=== PATIENT | female | born 1980 | race Caucasian/White ===

== ENCOUNTER 2020-06-21 08:20 | Emergency (ER) | payer OTHER, SELFPAY ==
[2020-06-21] VITALS (12 sets, daily range): BP systolic 146–157; BP diastolic 83–95; PULSE 78–96; RESP 17–29; TEMP 36.6; O2SAT 85–100
--- NOTE | ~2020-06-21 | CT_ITS ---
EXAMINATION: CT BRAIN W/O DATE: 06/21/2020 09:35 INDICATION: Status post fall. Head injury. TECHNIQUE: Computed tomography (CT) of the head was performed without intravenous contrast. The dose- length product was 605.33 mGy-cm. The mA was adjusted according to patient size. Iterative reconstruc tion technique was employed. COMPARISON: No prior studies for comparison. FINDINGS: Normal brain parenchymal volume for age. Normal cook-white differentiation. No acute intrac ranial hemorrhage, infarction, mass or mass effect. There is significant streak artifact from bilater al ear piercings. No ventriculomegaly or midline shift. Midline sagittal images demonstrate a normal corpus callosum, c raniovertebral junction and sella turcica. Basilar cisterns are patent. Paranasal sinuses and mastoids are pneumatized. No depressed skull fractures. IMPRESSION: 1. No acute intracranial abnormality. Reviewed, dictated and finalized at location B.
--- NOTE | ~2020-06-21 | CT_ITS ---
EXAMINATION: CT cervical spine wo con DATE: 06/21/2020 09:35 INDICATION: Head injury. TECHNIQUE: Computed tomography (CT) of the cervical spine was performed without intravenous contrast. Automated exposure control and iterative reconstruction technique were employed. The dose-length pro duct was 432.16 mGy-cm. COMPARISON: None FINDINGS: There is mild kyphosis of cervical spine. Vertebral body heights are normal. There is mildl y decreased disc height from C2-C3 through C5-C6. The following disc levels are specifically discusse d: C2-C3: There is no uncovertebral joint osteoarthritis. There is severe bilateral facet joint osteoart hritis. There is no neural foraminal stenosis. There is no central canal stenosis. C3-C4: There is no uncovertebral joint osteoarthritis. There is mild left facet joint osteoarthritis. There is no neural foraminal stenosis. There is mild central canal stenosis. C4-C5: There is no uncovertebral joint osteoarthritis. There is mild left facet joint osteoarthritis. There is no neural foraminal stenosis. There is no central canal stenosis. C5-C6: There is mild bilateral uncovertebral joint osteoarthritis. There is mild bilateral facet join t osteoarthritis. There is no neural foraminal stenosis. There is no central canal stenosis. C6-C7: There is no uncovertebral joint osteoarthritis. There is mild right and severe left facet join t osteoarthritis. There is mild left neural foraminal stenosis. There is no central canal stenosis. C7-T1: There is no uncovertebral joint osteoarthritis. There is moderate right and severe left facet joint osteoarthritis. There is mild left neural foraminal stenosis. There is no central canal stenosi s. IMPRESSION: 1. No fracture. 2. Mild cervical spondylosis. Reviewed, dictated and finalized at location A.
--- NOTE | 2020-06-21 08:32 | ECG_ITS ---
Measurements Intervals Lee Rate: 93 P: 58 SC: 148 QRS: -5 QRSD: 99 T: 31 QT: 350 QTc: 435 Interpretive Statements SINUS RHYTHM DELAYED PRECORDIAL R/S TRANSITION BASELINE ARTIFACT- I, II, III, AVR, AVL, AVF BORDERLINE ECG Electronically Signed On 06-21-2020 8:58:34 CDT by Dagoberto Ring D.O.
[2020-06-21 08:50] LABS: Basophils Percent Auto 0.4 % (0.2-1.2); Eosinophils Absolute Auto 0.1 K/mm3 (0-0.3); Eosinophils Percent Auto 0.7 % (0-4.4); Hematocrit 43.3 % (37.0-47.0); Hemoglobin 14.1 g/dL (12.0-15.0); Immature Granulocyte Absolute 0.02 K/mm3 (0.00-0.031); Immature Granulocyte Percent A 0.2 % (0-0.5); Lymphocytes Absolute Auto 1.76 K/mm3 (0.9-3.2); Lymphocytes Percent Auto 21.8 % (18.3-44.2); Mean Corpuscular HGB Conc 32.6 g/dl (32-36); Mean Corpuscular Hemoglobin 29.4 pg (26-34); Mean Corpuscular Volume 90.4 fl (80-100); Mean Platelet Volume 9.4 fl (7.4-10.4); Monocytes Absolute Auto 0.6 K/mm3 (0.1-0.6); Monocytes Percent Auto 7.3 % (2.6-8.5); Neutrophils Absolute Auto 5.6 K/mm3 (1.3-6.7); Neutrophils Percent Auto 69.6 % (45.5-73.1); Platelet Count Result 277 k/mm3 (150-375); Red Blood Count 4.79 M/mm3 (4.2-5.4); White Blood Count 8.1 K/mm3 (4.5-10.0)
--- NOTE | 2020-06-21 09:01 | ED.GENADULT ---
HPI - General Adult General Chief complaint: Head Injury Stated complaint: Fall-hit head Time Seen by Provider: 06/21/20 08:59 Source: patient History of Present Illness HPI narrative: Patient is a 40 y/o female complaining of falling and hitting her head CARETAKER. She states that she her dog was chewing on something she tried to go to her dog and tripped, fell and hit her head. She believes that she had LOC for an unknown period of time. She has some headache and neck pain. She denies any focal weakness or numbness. She is able to ambulate without difficulty. Related Data Allergies Allergy/AdvReac Type Severity Reaction Status Date / Time morphine Allergy Mild itch Verified 06/21/20 08:31 Review of Systems Constitutional: Constitutional: Denies chills, Denies fever(s), Reports headache(s) and Denies weakness Eyes: Eyes: Denies blurry vision ENT: Reports headache(s) and Reports neck pain Cardiovascular: Cardiovascular: Denies chest pain and Denies dyspnea Respiratory: Respiratory: Denies cough and Denies dyspnea Gastrointestinal: Gastrointestinal: Denies abdominal pain, Denies diarrhea, Denies nausea and Denies vomiting Genitourinary: Genitourinary: Denies hematuria and Denies dysuria Musculoskeletal: Musculoskeletal: Denies back pain and Denies neck pain Neurologic: Reports as per HPI, Reports headache(s), Reports memory loss and Denies weakness PMFSH Past Medical History Medical History Gallbladder & bile duct stone, acute cholecystitis and obstruction Morbid (severe) obesity due to excess calories PCOS (polycystic ovarian syndrome) Surgical History Surgical History History of partial hysterectomy Family History Family History Father , 70yrs old Lung cancer Other Family history of malignant neoplasm Social History Social History Social History: Smoking status: Never smoker Second hand tobacco smoke exposure: No Alcohol intake: current Substance use: never Substance use type: does not use Gender identity (if verbalized by the patient): Female Exam Const: General: no acute distress and well developed Orientation/consciousness: oriented to person, oriented to place, oriented to time and patient oriented x3 HENMT: Head: normocephalic Ears: external ears normal General nose exam: Normal external nose present Eyes: General: appearance normal, both eyes and all related structures Conjunctivae: conjunctivae normal Neck: Neck: normal visual inspection and full ROM Chest: Chest palpation & inspection: normal inspection of the chest and no tenderness Resp: Effort & Inspection: normal respiratory effort Auscultation: clear to auscultation bilaterally Cardio: Rate: regular rate Rhythm: regular rhythm GI: GI Palp: No abdominal tenderness and Yes Soft to palpation Skin: General skin exam: normal color and turgor normal Neuro: General: oriented to person, oriented to place, oriented to time and patient oriented x3 Cranial nerves: Yes CN's II-XII intact bilaterally Cognition (Neuro): normal cognition Speech: normal speech Motor exam (neuro): 5/5 motor strength present throughout Sensory Exam: normal sensation Coordination: [id number] test normal and [id number]-[id number] test normal Extrem: General: normal to inspection, full ROM and no pedal edema Psych: Appearance: grossly normal Mental Status: mental status grossly normal Affect: normal affect Course Vital Signs Vital signs: Vital Signs Temperature 36.6 C 06/21/20 08:24 Pulse Rate 91 06/21/20 08:24 Respiratory Rate 18 06/21/20 08:24 Blood Pressure 151/83 H 06/21/20 08:24 Pulse Oximetry 100 06/21/20 08:24 Temperature 36.6 C 06/21/20 08:24 Pulse Rate 81 06/21/20 10:59 Respiratory
[2020-06-21 09:02] LABS: Anion Gap 7 mmol/L (8-16); Blood Urea Nitrogen 10 mg/dL (7-17); Carbon Dioxide 30 mmol/L (22-30); Chloride 104 mmol/L (98-107); Estimated CRCL calculation 114 ml/min; Estimated Glomerular Filt Rate > 60; Glucose 98 mg/dL (65-105); Potassium 3.7 mmol/L (3.4-5.0); Sodium 141 mmol/L (137-145)
== END 2020-06-21 11:01 | disposition home or self-care (01) ==
PROVIDERS: Emergency Provider Emergency Medicine; PCP Family Medicine
DX: S06.0X9A Concussion with loss of consciousness of unspecified duration, initial encounter (principal); E66.01 Morbid (severe) obesity due to excess calories; Z68.38 Body mass index [BMI] 38.0-38.9, adult; E28.2 Polycystic ovarian syndrome; W01.10XA Fall on same level from slipping, tripping and stumbling with subsequent striking against unspecified object, initial encounter
CPT/HCPCS: 36415; 70450; 72125; 80048; 81025; 85025; 93005; 99284

== ENCOUNTER 2023-03-07 14:57 | Emergency (ER) | payer OTHER, SELFPAY ==
--- NOTE | 2023-03-07 15:00 | ED.URI ---
HPI - URI/Sore Throat General Chief Complaint: Dental/Oral Stated Complaint: Swollen & painful lymph node Time Seen by Provider: 03/07/23 15:01 Source: patient and RN notes reviewed History of Present Illness HPI Narrative: Patient is a 42-year-old female presents to urgent care with complaints of a swollen lymph node on the left side. Patient states that she thought she was having some dental pain and went to her dentist. Patient does currently using Invisalign and thought maybe it was related to her Invisalign. Salvador states that she should go to urgent care due to her swollen lymph node. Patient denies any other acute complaints. Denies any upper respiratory complaints, fever, nausea or vomiting. No acute distress noted. Patient aware of the plan of care. Some parts of this dictation were generated by voice recognition software and may contain typographical and/or grammatical inaccuracies. Related Data Allergies Allergy/AdvReac Type Severity Reaction Status Date / Time morphine Allergy Mild itch Verified 03/07/23 15:12 Review of Systems Review of Systems: CONSTITUTIONAL: Denies fever, chills, or sweats. EYES: Denies visual changes, redness, or discharge. ENT: Denies rhinorrhea, congestion, sore throat, or otalgia. Reports of swollen lymph node to the left ear CARDIOVASCULAR: Denies chest pain, palpitations, or edema. RESPIRATORY: Denies cough or dyspnea. GASTROINTESTINAL: Denies abdominal pain, nausea, vomiting, or diarrhea. GENITOURINARY: Denies dysuria or hematuria. SKIN: Denies rash or itching. MUSCULOSKELETAL: Denies back pain, joint pain, or myalgia. NEUROLOGIC: Denies headache, numbness, or weakness. All other systems reviewed are negative, except as documented in HPI. [facility] Past Medical History Medical History Gallbladder & bile duct stone, acute cholecystitis and obstruction Morbid (severe) obesity due to excess calories PCOS (polycystic ovarian syndrome) Surgical History Surgical History History of partial hysterectomy Family History Family History Father , 70yrs old Lung cancer Other Family history of malignant neoplasm Social History Social History (Updated 09/21/20 @ 16:36 by Margareth Cordova) Social History: Smoking status: Never smoker Second hand tobacco smoke exposure: No Alcohol intake: current Alcohol use details: Occasionally Substance use: never Substance use type: does not use Living arrangements: with family Occupation/Education: occupation Gender identity (if verbalized by the patient): Female Sexual Orientation (if Verbalized by the Patient): Straight or Heterosexual Comments ED my nurse note Exam Narrative: GENERAL: This is a well-nourished, well-developed patient, in no apparent distress. HEAD: normocephalic, atraumatic. EYES: PERRL. Sclera clear/white. Vision is grossly intact. EARS: External ears normal, auditory canals clear and without drainage, TMs normal without perforation. Hearing grossly intact. NOSE: External nose normal with no obvious nasal discharge, nares without redness, no rhinorrhea. THROAT: Mucous membranes moist, posterior pharynx clear. NECK: Neck supple, tender left post auricle lymphadenopathy DENTAL: No notable abscess, erythema, edema to gingiva or carious lesions. SKIN: warm, intact with no suspicious lesions or rash, good texture and turgor. NEURO: awake, alert, and oriented to person, place and time. There were no obvious focal neurologic abnormalities. EXTREMITIES: No clubbing, cyanosis, or edema. Course Course Level of Care: Express Care Visit Vital Signs Vital signs: Vital Signs Temperature 97.4 F L 03/07/23 15:15 Pulse Rate 84 03/07/23 15:15 Respiratory Rate 16 03/07/23 15:15 Blood Pressure 163/105 H 03/07/23 15:15 P
[2023-03-07 15:15] VITALS: BP 163/105; PULSE 84; RESP 16; TEMP 36.3; O2SAT 99
== END 2023-03-07 15:32 | disposition home or self-care (01) ==
PROVIDERS: Emergency Provider Nurse Practitioner Family; PCP Family Medicine
DX: R59.1 Generalized enlarged lymph nodes (principal); E66.01 Morbid (severe) obesity due to excess calories; Z68.41 Body mass index [BMI] 40.0-44.9, adult; E28.2 Polycystic ovarian syndrome
CPT/HCPCS: 87081; 87880; 99213; G0463

== ENCOUNTER 2023-05-10 13:34 | Outpatient (CLI) | payer OTHER, SELFPAY ==
--- NOTE | 2023-05-10 14:30 | NEURO_ITS ---
Impression: # Complains of numbness of hands. # Bilateral Carpal Tunnel Syndrome, right more than left. # No ulnar neuropathy. # Normal needle/EMG exam. Nerve Conduction Studies Anti Sensory Summary Table Stim Site NR Peak (ms) P-T Amp (?V) Site1 Site2 Delta-P (ms) Dist (cm) Akil (m/s) Left Median Anti Sensory (2-3nd Digit) Wrist 4.3 28.0 Wrist 2-3nd Digit 4.3 14.0 33 Wrist 4.5 20.1 Wrist 2-3nd Digit 4.3 14.0 33 Right Median Anti Sensory (2-3nd Digit) Wrist 4.8 20.2 Wrist 2-3nd Digit 4.8 14.0 29 Wrist 5.0 37.2 Wrist 2-3nd Digit 4.8 14.0 29 Left Radial Anti Sensory (Base 1st Digit) Wrist 2.0 50.7 Wrist Base 1st Digit 2.0 0.0 Right Radial Anti Sensory (Base 1st Digit) Wrist 2.1 15.9 Wrist Base 1st Digit 2.1 0.0 Left Ulnar Anti Sensory (5th Digit) Wrist 2.2 74.9 Wrist 5th Digit 2.2 14.0 64 Right Ulnar Anti Sensory (5th Digit) Wrist 2.2 75.5 Wrist 5th Digit 2.2 14.0 64 Motor Summary Table Stim Site NR Onset (ms) O-P Amp (mV) Site1 Site2 Delta-0 (ms) Dist (cm) Akil (m/s) Left Median Motor (Abd Poll Brev) Wrist 3.5 3.3 Elbow Wrist 5.2 28.0 54 Elbow 8.7 2.8 Right Median Motor (Abd Poll Brev) Wrist 4.0 4.7 Elbow Wrist 5.5 28.0 51 Elbow 9.5 3.4 Left Ulnar Motor (Abd Dig Minimi) Wrist 2.0 10.3 A Elbow Wrist 5.0 29.0 58 A Elbow 7.0 8.2 Right Ulnar Motor (Abd Dig Minimi) Wrist 2.0 6.3 A Elbow Wrist 5.3 30.0 57 A Elbow 7.3 6.0 F Wave Studies NR F-Lat (ms) L-R F-Lat (ms) Left Median (Mrkrs) (Abd Poll Brev) 28.44 0.41 Right Median (Mrkrs) (Abd Poll Brev) 28.85 0.41 Left Ulnar (Mrkrs) (Abd Dig Min) 27.19 0.56 Right Ulnar (Mrkrs) (Abd Dig Min) 27.74 0.56 EMG Side Muscle Nerve Root Ins Act Fibs Amp Dur Recrt Comment Right 1stDorInt Ulnar C8-T1 Nml Nml Nml Nml Nml Right Ext Indicis Radial (Post Int) C7-8 Nml Nml Nml Nml Nml Right Ext Digitorum Radial (Post Int) C7-8 Nml Nml Nml Nml Nml Right BrachioRad Radial C5-6 Nml Nml Nml Nml Nml Right PronatorTeres Median C6-7 Nml Nml Nml Nml Nml Right Abd Poll Brev Median C8-T1 Nml Nml Nml Nml Nml Left 1stDorInt Ulnar C8-T1 Nml Nml Nml Nml Nml Left Ext Indicis Radial (Post Int) C7-8 Nml Nml Nml Nml Nml Left Ext Digitorum Radial (Post Int) C7-8 Nml Nml Nml Nml Nml Left BrachioRad Radial C5-6 Nml Nml Nml Nml Nml Left PronatorTeres Median C6-7 Nml Nml Nml Nml Nml Left Abd Poll Brev Median C8-T1 Nml Nml Nml Nml Nml MTDD
== END 2023-05-10 13:35 | disposition home or self-care (01) ==
LOC: ANHNEURO 13:35
PROVIDERS: PCP Family Medicine; Visit Provider Plastic Surgery
DX: R20.0 Anesthesia of skin (principal); G56.03 Carpal tunnel syndrome, bilateral upper limbs
CPT/HCPCS: 95886; 95911

== ENCOUNTER → 2023-06-09 11:21 | Outpatient (CLI) | payer OTHER, SELFPAY ==
--- NOTE | ~2023-06-09 | MM_ITS ---
EXAMINATION: MM screening james BI w lachelle HISTORY: Screening mammogram TECHNIQUE: Craniocaudal and mediolateral oblique 3-D tomosynthesis images were obtained and synthetic 2-D images were generated. CAD analysis was submitted and interpreted. COMPARISON: No prior mammogram is available for comparison at this institution. BREAST PARENCHYMAL COMPOSITION: The breasts are almost entirely fatty. FINDINGS: There is no evidence of suspicious mass, calcification, or architectural distortion to sugg est malignancy in either breast. IMPRESSION: 1. No mammographic evidence of malignancy. 2. Recommend routine screening mammography in one year. BI-RADS Category 1: Negative Reviewed, dictated and finalized at location A.
== END ==
PROVIDERS: PCP Physician Assistant; Visit Provider Physician Assistant
DX: Z12.31 Encounter for screening mammogram for malignant neoplasm of breast (principal)
CPT/HCPCS: 77063; 77067

== ENCOUNTER 2023-08-24 02:57 | Day surgery (SDC) | payer OTHER, SELFPAY ==
[2023-08-21 10:52] VITALS: BMI 42.0
--- NOTE | 2023-08-21 10:56 | PC.NURSE ---
Report to the Outpatient Waiting Room, entrance under the green pavilion located off [facility], at time 0600 on date 08/24/23. Planned Procedure Time: 0730. Time changes happen often and if your time is changed the preop area will call you the afternoon before. - You and your visitor will be asked to self-screen and do not enter if you have any COVID symptoms. - A mask is optional within the hospital at this time. - No food OR DRINK from midnight until time of surgery Take the following medications with a SIP of water the morning of surgery: NONE DO NOT STOP ANY OF YOUR OTHER PRESCRIPTION MEDICATIONS PRIOR TO SURGERY ?EXCEPT THE FOLLOWING Medications to discontinue per physician: N/A Date to take last dose: N/A Please no make-up, nail israeli, hairspray, perfume, deodorant, or body powder the day of surgery. No jewelry (including any body piercings) or valuables the day of surgery, leave them at home. Please take a shower or bath the night before, or the morning of, surgery with an antibacterial soap. Wear comfortable, loose fitting clothing. - Jewelry must be removed prior to entering the operating room. Rings and piercings that are not removed may be cut off. - The hospital will not accept responsibility for valuables. - Please leave all valuables, including medications, at home the day of surgery. If you are going home after surgery, a licensed canal driver must drive you home. - NO public transportation without another adult if you receive anesthesia. - We recommend that an adult stay with you for 24 hours following discharge. - We also recommend that you do not drive, make important decision, drink alcoholic beverages, or take any drugs that were not prescribed by your health care provider for at least 24 hours after your discharge time. Follow any additional instructions given to you from your surgeon. If you or anyone in your household have experienced Covid symptoms in the past week, please notify your surgeon or the nurse liaison at the phone number below for possible testing. Telephone instructions given to PT - TRINITY BOWSER and asked if any additional questions and then verbalized understanding. Patient advised to call surgeon office or pre surgery nurse liaison [phone] if any additional questions.
[2023-08-24] MEDS: LACTATED RINGERS 1,000 ML 30 ML IV CONT (06:15)
[2023-08-24 06:30] VITALS: BP 150/87; PULSE 103; RESP 16; TEMP 36.5; O2SAT 100
--- NOTE | 2023-08-24 06:46 | PM.HPGS ---
History of Present Illness History of Present Illness Chief complaint: bilat carpal tunnel syndrome upper extremities Narrative: Patient seen and examined in pre-operative holding area. No interval change in medical history or symptoms. Patient recalls previous discussion of benefits and alternatives to procedure. Continues to desire to proceed with right ectr poss open and left carpal tunnel steroid injection. Reviewed procedure, post-op expectations and risks including but not limited to bleeding, infection, injury to tendon/nerve/vessel, decreased hand function, stiffness, RSD, no change or worsening of symptoms. I discussed the possible use of assistants and their participation in the case. Patient stated understanding and signed the consent form wishing to proceed. Review of Systems Review of Systems: All systems reviewed & are unremarkable except as noted in HPI and below PMFSH Past Medical History Medical History Gallbladder & bile duct stone, acute cholecystitis and obstruction Morbid (severe) obesity due to excess calories PCOS (polycystic ovarian syndrome) Surgical History Surgical History History of partial hysterectomy Family History Family History Father , 70yrs old Lung cancer Other Family history of malignant neoplasm Social History Social History Social History: Smoking status: Never smoker Second hand tobacco smoke exposure: No Alcohol intake: never Alcohol use details: Occasionally Substance use: never Substance use type: does not use Lack of Transportation: No Lack of Food: Never True Current Housing: I Have Housing Concerned About Future Housing: No Difficulty Paying Gas/Electric Bills: No Difficulty Paying for Meds: No Currently Unemployed: No Education: Associate Degree Difficulty w/ Childcare or Family Care: No Living arrangements: with family Occupation/Education: occupation Gender identity (if verbalized by the patient): Female Sexual Orientation (if Verbalized by the Patient): Straight or Heterosexual Spiritual care concerns: No Meds Home Medications and Allergies Home Medications Medication Instructions Recorded Confirmed Type amlodipine 10 mg tablet (Norvasc) 10 mg PO DAILY #90 tabs 04/17/23 08/21/23 Rx Allergies Allergy/AdvReac Type Severity Reaction Status Date / Time morphine Allergy Mild itch Verified 08/21/23 10:52 Exam Narrative: unchanged Assessment and Plan Assessment and plan (1) Bilateral carpal tunnel syndrome: Code(s): G56.03 - Carpal tunnel syndrome, bilateral upper limbs Status: Acute
--- NOTE | 2023-08-24 06:50 | W.PM.PROC2 ---
Procedure Note - Detailed Date of Procedure 08/24/23 Pre-op Diagnosis bilat carpal tunnel syndrome upper extremities Post-op Diagnosis Same Procedure Performed right ectr and left carpal tunnel steroid injection Surgeon Nile Dillon MD Anesthesia MAC Description of Procedure ENDOSCOPIC CARPAL TUNNEL RELEASE INFORMED CONSENT: The patient was seen and examined and marked in the pre-op area.? The patient signed the consent form. PROCEDURE IN DETAIL:The patient taken back to OR on the stretcher in supine position. Time out performed with anesthesia, surgeon and staff agreeing on patient's name site and surgery to be performed SCDs were placed on the lower extremities and inflated. A tourniquet was placed on {right/} upper extremity and antibiotics given IV After anesthesia administered sedation I injected {5}cc 1%lido with epi and 0.5% marcaine plain at the operative site The?{right upper extremity}?was prepped and draped in sterile fashion the??{right upper extremity} was? exsanguinated with Esmarch bandage and tourniquet inflated to 250mmHg I made a transverse incision in the {right} volar distal wrist crease through skin and dermis with 15 blade scalpel.? Littler scissors spread down to antebrachial fascia. A small incision was made in antebrachial fascia allowing access to Carpal tunnel. I proceeded with sequential dilation staying in line with the ring finger and hugging the hook of the hamate.? I then used the synovial elevator to free any adhesions from the underside of the transverse carpal ligament. Next I was able to insert the Microaire endoscopic carpal tunnel device with direct visualization of the transverse fibers on the monitor and proceeded with complete segmental retrograde release of the ligament in its entirety.? I irrigated with normal saline and closed with 4-0 monocryl for dermis and subcuticular closure. A dressing of Dermabond, 4x4, zuri, and a volar splint was applied for patient safety, security, and comfort and secured with an jewels bandage after the tourniquet was let down noting the hand was warm and well perfused. Next I proceeded iwth injection 0.7cc betamethasone and 0.3cc 1%lido plain into left carpal tunnel under sterile condition. The patient was then awaken from anesthesia and transferred to the recovery room in stable condition.? Complications - none EBL- 0cc Disposition - home in stable conditions AM Billing Surgery - Charge Forward: Surgery Billing ([id number], [id number])
--- NOTE | 2023-08-24 06:56 | WPDANESEPPF ---
Anes - Initial Pre Proc Eval Procedure: Operation Date: 08/24/23 07:30 Proposed Procedures p Right Endoscopic Carpal Tunnel Release, Possible Open, Left Carpal Tunnel Steroid Injection - Nile Dillon MD Date/Time: 08/24/23 06:56 Surgeon: Nile Dillon MD Pre Op Diagnosis: bilat carpal tunnel syndrome upper extremities Patient Data Age: 43 Gender: F Height: 1.63 m Weight: 111.15 kg Allergies Allergy/AdvReac Type Severity Reaction Status Date / Time morphine Allergy Mild itch Verified 08/21/23 10:52 Home Medications Medication Instructions Recorded Confirmed Type amlodipine 10 mg tablet (Norvasc) 10 mg PO DAILY #90 tabs 04/17/23 08/21/23 Rx Patient hx anesthesia problems: none Family hx anesthesia problems: none Results Review: All pre-operative results and documents have been reviewed as part of the pre-operative evaluation. [facility] Past Medical History Medical History Gallbladder & bile duct stone, acute cholecystitis and obstruction Morbid (severe) obesity due to excess calories PCOS (polycystic ovarian syndrome) Surgical History Surgical History History of partial hysterectomy Family History Family History Father , 70yrs old Lung cancer Other Family history of malignant neoplasm Social History Social History Social History: Smoking status: Never smoker Second hand tobacco smoke exposure: No Alcohol intake: never Alcohol use details: Occasionally Substance use: never Substance use type: does not use Lack of Transportation: No Lack of Food: Never True Current Housing: I Have Housing Concerned About Future Housing: No Difficulty Paying Gas/Electric Bills: No Difficulty Paying for Meds: No Currently Unemployed: No Education: Associate Degree Difficulty w/ Childcare or Family Care: No Living arrangements: with family Occupation/Education: occupation Gender identity (if verbalized by the patient): Female Sexual Orientation (if Verbalized by the Patient): Straight or Heterosexual Spiritual care concerns: No Anes - Eval Final PreProcedure Day of Procedure 08/24/23 06:56 Patient weight: morbidly obese Heart: regular rate and rhythm Lungs: clear to auscultation Airway: Mallampati scale class II Neurological: alert and oriented Last oral intake: >/= 8 hours ASA classification: III Emergent: no Anesthetic plan: proceed Anesthesia type and monitoring: general GIVS and standard monitoring Results Review: All pre-operative results and documents have been reviewed as part of the pre-operative evaluation. Informed Consent: The patient's anesthetic plan and its attendant risks and benefits were discussed with the patient/family/POA. Questions were solicited and answers provided to the satisfaction of the patient/family/POA.
[2023-08-24] MEDS: BETAMETHASONE SOD PHOS/ACETATE 30 MG/5 ML VIAL 12 MG IM (07:20)
[2023-08-24] MEDS: ceFAZolin 2 GM/D5W 50 ML 2 GM/50 ML BAG IVPB (07:30)
[2023-08-24] MEDS: LIDO 1%/EPINEPHRINE 1:100,000 50 ML VIAL INFILTRATE (07:51)
[2023-08-24 07:53] VITALS: BP 111/72; PULSE 91; RESP 16; O2SAT 97
[2023-08-24] MEDS: LIDOCAINE HCL 1% LOCAL INJ 10 ML VIAL INFILTRATE (07:56)
[2023-08-24 08:20] VITALS: BP 110/76; PULSE 85; RESP 18
[2023-08-24 08:45] VITALS: BP 112/83; PULSE 64; RESP 18
== END 2023-08-24 08:51 | disposition home or self-care (01) ==
PROVIDERS: PCP Physician Assistant; Visit Provider Plastic Surgery
PROC: 01N54ZZ Release Median Nerve, Percutaneous Endoscopic Approach (ICD-10-PCS; CPT 29848; principal; 2023-08-24 07:30)
DX: G56.03 Carpal tunnel syndrome, bilateral upper limbs (principal); E66.01 Morbid (severe) obesity due to excess calories; Z68.41 Body mass index [BMI] 40.0-44.9, adult
CPT/HCPCS: 29848; 20526; J0690; J0702; J2250; J2704; J3010; J7120

== ENCOUNTER 2023-11-22 01:21 | Day surgery (SDC) | payer OTHER, SELFPAY ==
[2023-11-14 10:24] VITALS: BMI 40.7
--- NOTE | 2023-11-14 10:28 | PC.NURSE ---
Report to the Outpatient Waiting Room, entrance under the green pavilion located off [facility], at time _1000__ on date _11/22/23 . Planned Procedure Time: _1200___. Time changes happen often and if your time is changed the preop area will call you the afternoon before. - You and your visitor will be asked to self-screen and do not enter if you have any COVID symptoms. - A mask is optional within the hospital at this time. Patients may have clear liquids (water, carbonated beverages, clear teas, apple juice) until 8 hours prior to surgery with a maximum of 20 ounces. - No food from midnight until time of surgery Take the following medications with a SIP of water the morning of surgery: N/A DO NOT STOP ANY OF YOUR OTHER PRESCRIPTION MEDICATIONS PRIOR TO SURGERY ?EXCEPT THE FOLLOWING Please no make-up, nail bengali, hairspray, perfume, deodorant, or body powder the day of surgery. No jewelry (including any body piercings) or valuables the day of surgery, leave them at home. Please take a shower or bath the night before, or the morning of, surgery with an antibacterial soap. Wear comfortable, loose fitting clothing. Children are encouraged to wear pajamas. - Jewelry must be removed prior to entering the operating room. Rings and piercings that are not removed may be cut off. - The hospital will not accept responsibility for valuables. - Please leave all valuables, including medications, at home the day of surgery. If you are going home after surgery, a licensed yard truck driver must drive you home. - NO public transportation without another adult if you receive anesthesia. - We recommend that an adult stay with you for 24 hours following discharge. - We also recommend that you do not drive, make important decision, drink alcoholic beverages, or take any drugs that were not prescribed by your health care provider for at least 24 hours after your discharge time. Follow any additional instructions given to you from your surgeon. If you or anyone in your household have experienced Covid symptoms in the past week, please notify your surgeon or the nurse liaison at the phone number below for possible testing. Telephone instructions given to _Sasha Quiros__and asked if any additional questions and then verbalized understanding. Patient advised to call surgeon office or pre surgery nurse liaison [phone] if any additional questions.
[2023-11-22 10:14] VITALS: BP 141/95; PULSE 93; RESP 16; TEMP 36.3; O2SAT 100
--- NOTE | 2023-11-22 10:15 | P.OP_ITS ---
Procedure Note - Detailed Date of Procedure 11/22/23 Pre-op Diagnosis left carpal tunnel syndrome Post-op Diagnosis Same Procedure Performed left ectr Surgeon Nile Dillon MD [employer] Nabor Soler PA-C Anesthesia MAC Description of Procedure INFORMED CONSENT: The patient was seen and examined and marked in the pre-op area.? The patient signed the consent form. PROCEDURE IN DETAIL:The patient taken back to OR on the stretcher in supine position. Time out performed with anesthesia, surgeon and staff agreeing on patient's name site and surgery to be performed SCDs were placed on the lower extremities and inflated. A tourniquet was placed on {left} upper extremity and antibiotics given IV After anesthesia administered sedation I injected {6}cc 1%lido with epi and 0.5% marcaine plain at the operative site The?{left upper extremity}?was prepped and draped in sterile fashion the??{left upper extremity} was? exsanguinated with Esmarch bandage and tourniquet inflated to 250mmHg I made a transverse incision in the {left} volar distal wrist crease through skin and dermis with 15 blade scalpel.? Littler scissors spread down to antebrachial fascia. A small incision was made in antebrachial fascia allowing access to Carpal tunnel. I proceeded with sequential dilation staying in line with the ring finger and hugging the hook of the hamate.? I then used the synovial elevator to free any adhesions from the underside of the transverse carpal ligament. Next I was able to insert the Microaire endoscopic carpal tunnel device with direct visualization of the transverse fibers on the monitor and proceeded with complete segmental retrograde release of the ligament in its entirety.? I irrigated with normal saline and closed with 4-0 monocryl for dermis and subcuticular closure. A dressing of Dermabond, 4x4, zuri, and a volar splint was applied for patient safety, security, and comfort and secured with an jewels bandage after the tourniquet was let down noting the hand was warm and well perfused. The patient was then awaken from anesthesia and transferred to the recovery room in stable condition.? Complications - none EBL- 0cc Disposition - home in stable conditions Nabor Soler PA-C was essential for positioning, retraction, closure and dressing placement [facility] Billing Surgery - Charge Forward: Surgery Billing ([id number] and [id number] for nabor)
--- NOTE | 2023-11-22 10:15 | WPDHPUPDATE1 ---
History and Physical Update Update Date/Time: 11/22/23 10:15 Patient seen and examined in pre-operative holding area. No interval change in medical history or symptoms. Patient recalls previous discussion of benefits and alternatives to procedure. Continues to desire to proceed with left endoscopic possible open carpal tunnel release. Reviewed procedure, post-op expectations and risks including but not limited to bleeding, infection, injury to tendon/nerve/vessel, decreased hand function, stiffness, RSD, no change or worsening of symptoms. I discussed the possible use of assistants and their participation in the case. Patient stated understanding and signed the consent form wishing to proceed.
--- NOTE | 2023-11-22 11:18 | WPDANESEPPF ---
Anes - Initial Pre Proc Eval Procedure: Operation Date: 11/22/23 12:00 Proposed Procedures p Left Endoscopic, Possible Open Carpal Tunnel Release - Nile Dillon MD Date/Time: 11/22/23 11:18 Surgeon: Nile Dillon MD Pre Op Diagnosis: Lt Carpal Tunnel Synd Patient Data Age: 43 Gender: F Height: 1.65 m Weight: 116.8 kg Last Vital Signs Temp 36.3 C L 11/22/23 10:14 Pulse 93 11/22/23 10:14 Resp 16 11/22/23 10:14 BP 141/95 H 11/22/23 10:14 Pulse Ox 100 11/22/23 10:14 O2 Del Method Room Air 11/22/23 10:14 Allergies Allergy/AdvReac Type Severity Reaction Status Date / Time morphine Allergy Mild itch Verified 11/22/23 10:07 Home Medications Medication Instructions Recorded Confirmed Type amlodipine 10 mg tablet (Norvasc) 10 mg PO HS 11/14/23 11/14/23 History tramadol 50 mg tablet 50 mg PO Q6H PRN pain #12 tabs 11/22/23 Rx Patient hx anesthesia problems: none Family hx anesthesia problems: none Results Review: All pre-operative results and documents have been reviewed as part of the pre-operative evaluation. [facility] Past Medical History Medical History Gallbladder & bile duct stone, acute cholecystitis and obstruction Morbid (severe) obesity due to excess calories PCOS (polycystic ovarian syndrome) Surgical History Surgical History History of partial hysterectomy Family History Family History Father , 70yrs old Lung cancer Other Family history of malignant neoplasm Social History Social History Social History: Smoking status: Never smoker Second hand tobacco smoke exposure: No Alcohol intake: never Substance use: never Substance use type: does not use Lack of Transportation: No Lack of Food: Never True Current Housing: I Have Housing Concerned About Future Housing: No Difficulty Paying Gas/Electric Bills: No Difficulty Paying for Meds: No Currently Unemployed: No Education: Associate Degree Difficulty w/ Childcare or Family Care: No Living arrangements: with family Occupation/Education: occupation Gender identity (if verbalized by the patient): Female Sexual Orientation (if Verbalized by the Patient): Straight or Heterosexual Spiritual care concerns: No Anes - Eval Final PreProcedure Day of Procedure 11/22/23 11:18 Patient weight: morbidly obese Heart: regular rate and rhythm Lungs: clear to auscultation Airway: Mallampati scale class II Neurological: alert and oriented Last oral intake: >/= 8 hours ASA classification: III Emergent: no Anesthetic plan: proceed Anesthesia type and monitoring: general GIVS and standard monitoring Results Review: All pre-operative results and documents have been reviewed as part of the pre-operative evaluation. Informed Consent: The patient's anesthetic plan and its attendant risks and benefits were discussed with the patient/family/POA. Questions were solicited and answers provided to the satisfaction of the patient/family/POA.
[2023-11-22] MEDS: ceFAZolin 2 GM/D5W 50 ML 2 GM/50 ML BAG IVPB (12:07)
[2023-11-22] MEDS: LIDO 1%/EPINEPHRINE 1:100,000 50 ML VIAL INFILTRATE (12:24)
[2023-11-22 12:34] VITALS: BP 116/77; PULSE 89; RESP 12; O2SAT 95
[2023-11-22] MEDS: LACTATED RINGERS 1,000 ML 30 ML IV CONT (12:34)
[2023-11-22 13:00] VITALS: BP 111/74; PULSE 83; RESP 20
[2023-11-22 13:25] VITALS: BP 118/70; PULSE 90; RESP 20
== END 2023-11-22 13:30 | disposition home or self-care (01) ==
PROVIDERS: PCP Physician Assistant; Visit Provider Plastic Surgery
PROC: 01N54ZZ Release Median Nerve, Percutaneous Endoscopic Approach (ICD-10-PCS; CPT 29848; principal; 2023-11-22 12:00)
DX: G56.02 Carpal tunnel syndrome, left upper limb (principal); E28.2 Polycystic ovarian syndrome; E66.01 Morbid (severe) obesity due to excess calories; Z68.41 Body mass index [BMI] 40.0-44.9, adult; Z79.891 Long term (current) use of opiate analgesic; Z80.1 Family history of malignant neoplasm of trachea, bronchus and lung
CPT/HCPCS: 29848; J0690; J2250; J2704; J3010; J7120

== ENCOUNTER 2025-02-10 19:34 | Emergency (ER) | payer OTHER, SELFPAY ==
--- NOTE | ~2025-02-10 | CT_ITS ---
CT abdomen pelvis w con Ordering provider: Chandni Ernst APRN History: 44 years Female with . generalized abdominal pain . Comparison: None. Technique: CT abdomen and pelvis with IV and without oral contrast. Automated exposure control and it erative reconstruction technique were employed. The dose-length product was 1618.43 mGy-cm. 100 mL Om nipaque 350 was given IV. Findings: VISUALIZED LOWER CHEST: Normal. UPPER ABDOMINAL ORGANS: Liver: Fat infiltration. Hepatomegaly. Gallbladder: Status post cholecystectomy. Spleen: Normal. Stomach/duodenum: Small sliding hiatus hernia. Pancreas: Normal. Adrenals: Normal. Kidneys: Normal. PELVIC ORGANS: The bladder is normal. Right ovarian cyst is seen measuring 6 x 4.6 cm. Left ovarian cyst is seen measuring 1.8 x 2.8 cm. BOWEL AND MESENTERY: Colon: no evidence of diverticulitis. Appendix is not demonstrated.. Small Bowel: Normal. No obstruction. Peritoneum/mesentery: No free air or free fluid. No mesenteric lymphadenopathy. RETROPERITONEUM: Normal aorta. No retroperitoneal lymphadenopathy. MUSCULOSKELETAL: Superficial soft tissues: Small left fat-containing inguinal hernia. Otherwise, The superficial soft tissues are normal. Bones: Age appropriate degenerative changes of the spine. Bilateral sacroiliacs. IMPRESSION: 1. No evidence of appendicitis, diverticulitis or intestinal obstruction. 2. Bilateral ovarian cysts larger on the right side. 3. Left fat-containing inguinal hernia. 4. Hepatomegaly with fat infiltration. Reviewed, dictated and finalized at location A.
--- OUTSIDE RECORDS SUMMARY | 2025-02-10 19:37 | XMS_ITS | Clinical Summary ---
Author Organization [facility] Address [address] [place] [address] Care Team Providers Care Shoelace Tipping Machine Operator Name Role Phone No, Physician Primary Care Provider [phone] Allergies Active Allergy Reactions Criticality Noted Date Comments Morphine Itching Low 05/15/2017 Medications azithromycin (ZITHROMAX) 250 mg tabletIndicatio ns:Chest congestion Take 2 tablets the first day, then 1 tablet daily for 4 days. 6 tablet 1 Active albuterol HFA (PROVENTIL HFA,VENTOLIN HFA,PROAIR HFA) 90 mcg/actuation inhalerIndicati ons:Chest congestion Inhale 2 puffs every 6 (six) hours as needed for wheezing or shortness of breath 1 each 1 Active Active Problems Problem Noted Date Diagnosed Date Family history of genetic disease carrier 2020 Family history of ovarian cancer 06/07/2021 Family history of pancreatic cancer 06/07/2021 Family history of colon cancer 06/07/2021 08/21/2013 Irregular menstrual cycle 09/25/2012 Family History Medical History Relation Name Comments No Known Problems Daughter 1 Pamela No Known Problems Daughter 2 Wendy Lung cancer Father history of smok ing Colon cancer Father's Brother Celso Pancreatic cancer Father's Sister 1 Zuleyka Ovarian cancer Father's Sister 2 Rosy Alzheimer's disease Maternal Grandfather Stroke Maternal Grandmother CHEK2+ Mother Hien Ovarian cancer Mother Hien No Known Problems Nephew 1 Bello No Known Problems Nephew 2 accidental Paternal Grandfather Stomach cancer Paternal Grandmother chewe d snuff Lung disease Paternal Half-Brother Tank Polycystic ovary syndrome Sister Jeanette Relation Name Status Comments Daughter 1 Pamela Alive Daughter 2 Wendy Alive Father (Age 70) Father's Brother Celso Alive Father's Sister 1 Zuleyka (Age 75) Father's Sister 2 Rosy (Age 35) Maternal Grandfather (Age 84) Maternal Grandmother (Age 78) Mother Hien Alive Nephew 1 Bello Alive Nephew 2 Alive Paternal Grandfather (Age 45) Paternal Grandmother (Age 81) Paternal Half-Brother Tank (Age 47) Sister Jeanette Alive Social History Tobacco Use Types Packs/Day Years Used Date Smoking Tobacco: Never Personal Safety Answer Date Recorded Getting School Help Needed Not on file 10/29 Comments No Sex and Gender Information Value Date Recorded Sex Assigned at Not on file 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 Gender Identity Not on file Sexual Orientation Not on file Obstetrics History Last Filed Vital Signs Vital Sign Reading Time Taken Comments Blood Pressure 148/96 06/20/2021 8:31 AM CDT Pulse 106 06/20/2021 8:31 AM CDT Temperature 36.7 C (98.1 F) 06/20/2021 8:31 AM CDT Respiratory Rate 18 06/20/2021 8:31 AM CDT Oxygen Saturation 98% 06/20/2021 8:31 AM CDT Inhaled Oxygen Concentration - - Weight 116.1 kg (256 lb) 06/20/2021 8:31 AM CDT Height 165.1 cm (5' 5) 06/20/2021 8:31 AM CDT Body Mass Index 42.6 06/20/2021 8:31 AM CDT Plan of Treatment Not on file Insurance AETNA HMO/PPO CHOICE PLUS AETNA [facility] CHOICE PLUS KAREL GIANNA Care Teams Shoelace Tipping Machine Operator Relationship Specialty Start Date End Date No, Physician PCP - General 04/19/21
--- OUTSIDE RECORDS SUMMARY | 2025-02-10 19:37 | XMS_ITS | Clinical Summary ---
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
--- OUTSIDE RECORDS SUMMARY | 2025-02-10 19:37 | XMS_ITS | Clinical Summary ---
Author Organization [facility] Address [address] [place] [address] Care Team Providers Care Deputy Sheriff Lieutenant Name Role Phone Unavailable Primary Care Provider Unavailabl e Source Comments [facility],non-owned Affiliates and Associated Physician Practices is amultiple site organization consisting of ambulatory clinics and hospital sitesin [place], [place], [place] and [place]. This disclosure is being madepursuant to the Care Everywhere program and may not contain all information available regarding this patient. Last updated 18.[facility] Allergies Active Allergy Reactions Criticality Noted Date Comments Morphine Itching 05/15/2017 Medications * Be aware that medications may not be up to date on this document. Alwaysverify current medications with the patient. 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 Gender Identity Not on file Sexual Orientation Not on file Last Filed Vital Signs Vital Sign Reading Time Taken Comments Blood Pressure 142/88 09/16/2019 4:44 PM LUTE PACKER OR APPLIER Pulse 90 09/16/2019 4:44 PM LUTE PACKER OR APPLIER Temperature 36.9 C (98.5 F) 09/16/2019 4:44 PM LUTE PACKER OR APPLIER Respiratory Rate 16 09/16/2019 4:44 PM LUTE PACKER OR APPLIER Oxygen Saturation 98% 09/16/2019 4:44 PM LUTE PACKER OR APPLIER Inhaled Oxygen Concentration - - Weight 108.4 kg (239 lb) 09/16/2019 4:44 PM LUTE PACKER OR APPLIER Height 165.1 cm (5' 5) 09/16/2019 4:44 PM LUTE PACKER OR APPLIER Body Mass Index 39.77 09/16/2019 4:44 PM LUTE PACKER OR APPLIER Plan of Treatment Health Maintenance Due Date Last Done Comments LIPID TESTING 1982 MAMMOGRAM 1982 HIV SCREENING 1997 HEPATITIS C SCREENING 06/01/2000 DTAP/TDAP/TD VACCINES (1 - Tdap) 2001 HEPATITIS B VACCINE (1 of 3 - 19+ 3-dose series) 2001 COVID-19 VACCINE (1 - 2023-2 5 season) 2024 DEPRESSION SCREENING 09/03/2024 INFLUENZA VACCINE (Season Ended) 2025 ZOSTER VACCINE (1 of 2) 2032 HIB VACCINE Aged Out No longer eligi ble based on patient's age to complete this topic HPV VACCINE Aged Out No longer eligi ble based on patient's age to complete this topic MENINGOCOCCAL (Group B) VACC INE SHARED DECISION-MAKING Aged Out No longer eligibl e based on patient's age to complete this topic MENINGOCOCCAL GROUPS A/C/Y/W VACCINE Aged Out No longer eligible b ased on patient's age to complete this topic PNEUMOCOCCAL VACCINE Aged Out No long er eligible based on patient's age to complete this topic Insurance [facility] AETNA [facility] Address: [address] [address] [place] [address]
--- OUTSIDE RECORDS SUMMARY | 2025-02-10 19:37 | XMS_ITS | Referral Summary ---
Author Organization [facility] Address [address] [place] [address] Care Team Providers Care Union Representative Name Role Phone No, Physician Primary Care Provider [phone] Allergies Active Allergy Reactions Criticality Noted Date Comments Morphine Itching Low 05/15/2017 Medications azithromycin (ZITHROMAX) 250 mg tabletIndicatio ns:Chest congestion Take 2 tablets the first day, then 1 tablet daily for 4 days. 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 CHOICE PLUS AETNA [facility] CHOICE PLUS [facility] Care Teams Union Representative Relationship Specialty Start Date End Date No, Physician PCP - General 04/19/21
[2025-02-10 19:40] VITALS: BP 162/94; PULSE 109; RESP 16; TEMP 36.6; O2SAT 100
[2025-02-10 19:56] VITALS: BP 133/118; PULSE 92; RESP 17; O2SAT 98
--- NOTE | 2025-02-10 20:16 | ED_ITS ---
HPI - Abdominal Pain General Chief Complaint: Abdominal Pain Stated Complaint: Right flank, abdominal pain, nausea Time Seen by Provider: 02/10/25 19:38 History of Present Illness HPI narrative: Patient is a 44-year-old female who presents to the ER with complaints abdominal pain. She reports her pain started yesterday. It radiates across her upper and lower abdomen and into her right flank. Patient reports the pain increases when she urinates or has a bowel movement. She also endorses a feeling of fullness.Patient denies any urinary symptoms, chest pain, shortness of breath, recent fevers, or vomiting. She endorses a history of a partial hysterectomy and a cholecystectomy. Patient also endorses intermittent nausea and decreased p.o. intake. Related Data Allergies Allergy/AdvReac Type Severity Reaction Status Date / Time morphine Allergy Mild itch Verified 02/10/25 19:45 Review of Systems 2 Review of Systems: All systems reviewed & are unremarkable except as noted in HPI and below PMFSH Past Medical History Medical History Morbid (severe) obesity due to excess calories PCOS (polycystic ovarian syndrome) Gallbladder & bile duct stone, acute cholecystitis and obstruction Surgical History Surgical History History of partial hysterectomy Family History Family History Father , 70yrs old Lung cancer Other Family history of malignant neoplasm Social History Social History Social History: Smoking status: Never smoker Second hand tobacco smoke exposure: No Alcohol intake: never Substance use: never Substance use type: does not use Lack of Transportation: No Lack of Food: Never True Current Housing: I Have Housing Concerned About Future Housing: No Difficulty Paying Gas/Electric Bills: No Difficulty Paying for Meds: No Currently Unemployed: No Education: Associate Degree Difficulty w/ Childcare or Family Care: No Living arrangements: with family Occupation/Education: occupation Gender identity (if verbalized by the patient): Female Sexual Orientation (if Verbalized by the Patient): Straight or Heterosexual Spiritual care concerns: No Exam 2 Narrative: GENERAL: Well appearing, well-nourished, non-toxic, in no acute distress. HEAD: Normocephalic, atraumatic. NECK: Supple. No adenopathy, no masses. RESPIRATORY: Airway patent, respirations nonlabored. Clear to auscultation bilaterally, no rales, rhonchi, wheezing. CARDIOVASCULAR: Regular rate and rhythm without murmurs, rubs, or gallops. Peripheral pulses 2+ and equal bilaterally. ABDOMINAL: Soft, tender with palpation right upper quadrant, left upper quadrant, right lower quadrant. Slightly distended, no hepatosplenomegaly. Normoactive BS. MUSCULOSKELETAL: Moves all extremities. Strength/ROM intact without gross deformities. SKIN: Warm, dry, normal color. No rashes. NEURO: A&O X3. Speech clear. Cranial nerves II-XII intact. No ataxic movements. PSYCHIATRIC: Appropriate mood and affect. Normal interaction. Course Vital Signs Vital signs: Vital Signs Temperature 36.6 C 02/10/25 19:40 Pulse Rate 109 H 02/10/25 19:40 Respiratory Rate 16 02/10/25 19:40 Blood Pressure 162/94 H 02/10/25 19:40 Pulse Oximetry 100 02/10/25 19:40 Oxygen Delivery Room Air 02/10/25 19:40 Temperature 36.6 C 02/10/25 19:40 Pulse Rate 92 02/10/25 19:56 Respiratory Rate 17 02/10/25 19:56 Blood Pressure 133/118 H 02/10/25 19:56 Pulse Oximetry 98 02/10/25 19:56 Oxygen Delivery Room Air 02/10/25 19:40 MDM - Abdominal Pain MDM Narrative Medical decision making narrative: Patient is a 44-year-old female who presents to the ER with complaints abdominal pain. She reports her pain started yesterday. It radiates across her upper and lower abdomen and into her right flank. Patient reports the pain increases when she urinates or has a bowel movement. She also endorses a feeling of fullness.Patient denies any urinary symptoms, chest pain, shortness of breath, recent fevers, or vomiting. She endorses a history of a partial hysterectomy and a cholecystectomy. Patient also endorses intermittent nausea and decreased p.o. intake. Labs Ordered: CBC, CMP, lipase, UA Imaging Ordered: CT abdomen pelvis Medications Ordered: 1 L normal saline IV bolus Results: Pt's CT scan indicates VISUALIZED LOWER CHEST: Normal. UPPER ABDOMINAL ORGANS: Liver: Fat infiltration. Hepatomegaly. Gallbladder: Status post cholecystectomy. Spleen: Normal. Stomach/duodenum: Small sliding hiatus hernia. Pancreas: Normal. Adrenals: Normal. Kidneys: Normal. PELVIC ORGANS: The bladder is normal. Right ovarian cyst is seen measuring 6 x 4.6 cm. Left ovarian cyst is seen measuring 1.8 x 2.8 cm. BOWEL AND MESENTERY: Colon: no evidence of diverticulitis. Appendix is not demonstrated.. Small Bowel: Normal. No obstruction. Peritoneum/mesentery: No free air or free fluid. No mesenteric lymphadenopathy. RETROPERITONEUM: Normal aorta. No retroperitoneal lymphadenopathy. MUSCULOSKELETAL: Superficial soft tissues: Small left fat-containing inguinal hernia. Otherwise, The superficial soft tissues are normal. Bones: Age appropriate degenerative changes of the spine. Bilateral sacroiliacs. Diagnosis: Gastroenteritis Patient Education/Shared MDM: Results of lab work and imaging shared with patient. She endorses ongoing lower abdominal and R flank pain, so she will be given a dose of Toradol prior to discharge. Patient strongly advised to maintain hydration status upon discharge and follow-up with their PCP as soon as possible. She will be discharged home with a prescription for Bentyl and a muscle relaxant (per pt's request in case this pain is muscular). Strict return precautions provided. Patient verbalized understanding and is in agreement with plan. Vital signs stable at time of discharge. All questions answered. Differential Diagnosis Differential diagnosis: Likely abdominal pain, calculus of kidney, constipation, diverticulitis and gastroenteritis Lab Data Attestation: I reviewed the patient's lab results. 02/10/25 19:51 02/10/25 20:25 Labs: Lab Results 02/10/25 02/10/25 02/10/25 Range/Units 19:51 20:05 20:16 WBC 10.1 H (4.5-10.0) K/mm3 RBC 4.76 (4.2-5.4) M/mm3 Hgb 14.6 (12.0-15.0) g/dL Hct 44.4 (37.0-47.0) % MCV 93.3 (80-100) fl MCH 30.7 (26-34) pg MCHC 32.9 (32-36) g/dl RDW 12.8 (11.5-14.5) % Plt Count 271 (150-375) k/mm3 MPV 10.4 (7.4-10.4) fl Immature Gran % (Auto) 0.3 (0-0.5) % Neut % (Auto) 66.8 (45.5-73.1) % Lymph % (Auto) 23.5 (18.3-44.2) % Schleicher % (Auto) 7.7 (2.6-8.5) % Eos % (Auto) 1.0 (0-4.4) % Baso % (Auto) 0.7 (0.2-1.2) % Lymph # (Auto) 2.37 (0.9-3.2) K/mm3 Schleicher # (Auto) 0.8 H (0.1-0.6) K/mm3 Eos # (Auto) 0.1 (0-0.3) K/mm3 Baso # (Auto) 0.1 (0.0-0.1) K/mm3 Abs Immat Gran (auto) 0.03 (0.00-0.031) K/mm3 Absolute Neuts (auto) 6.7 (1.3-6.7) K/mm3 Absolute Nucleated RBC 0.000 (0.0-0.012) K/mm3 Nucleated RBC % 0.0 (0.0-0.2) % Sodium (137-145) mmol/L Potassium (3.4-5.0) mmol/L Chloride (98-107) mmol/L Carbon Dioxide (22-30) mmol/L Anion Gap (4-12) mmol/L BUN (7-17) mg/dL Creatinine (0.7-1.0) mg/dL Estim Creat Clear Calc ml/min Estimated GFR (59 - ) Glucose (65-110) mg/dL Calcium (8.4-10.2) mg/dL Total Bilirubin (0.2-1.3) mg/dL AST (14-36) U/L ALT (6-35) U/L Alkaline Phosphatase (38-126) U/L Total Protein (6.3-8.2) g/dL Albumin (3.5-5.1) g/dL Lipase (23-300) U/L Urine Color Yellow (Yellow) Urine Appearance Clear (Clear) Urine pH 6.0 (5.0-9.0) Ur Specific [place] 1.013 (1.001-1.035) Urine Protein Negative (Negative) mg/dL Urine Glucose (UA) Negative (Negative) mg/dL Urine Ketones Negative (Negative) mg/dL Ur Blood (Man) Non-hemolyzed trace H (Negative) Urine Nitrate Negative (Negative) Urine Bilirubin Negative (Negative) Urine Urobilinogen 0.2 (<2.0) mg/dL Leukocyte Esterase Rfl Negative (Negative) OMAR/UL Urine RBC 3-5 H (0-2) /hpf Urine WBC 0-5 (0-3) /hpf Ur Squamous Epith Cells None seen (Few) /hpf Urine Bacteria None seen /hpf Urine Casts 0-2 POC Urine HCG, Qual Negative (Negative) 02/10/25 Range/Units 20:25 WBC (4.5-10.0) K/mm3 RBC (4.2-5.4) M/mm3 Hgb (12.0-15.0) g/dL Hct (37.0-47.0) % MCV (80-100) fl MCH (26-34) pg MCHC (32-36) g/dl RDW (11.5-14.5) % Plt Count (150-375) k/mm3 MPV (7.4-10.4) fl Immature Gran % (Auto) (0-0.5) % Neut % (Auto) (45.5-73.1) % Lymph % (Auto) (18.3-44.2) % Schleicher % (Auto) (2.6-8.5) % Eos % (Auto) (0-4.4) % Baso % (Auto) (0.2-1.2) % Lymph # (Auto) (0.9-3.2) K/mm3 Schleicher # (Auto) (0.1-0.6) K/mm3 Eos # (Auto) (0-0.3) K/mm3 Baso # (Auto) (0.0-0.1) K/mm3 Abs Immat Gran (auto) (0.00-0.031) K/mm3 Absolute Neuts (auto) (1.3-6.7) K/mm3 Absolute Nucleated RBC (0.0-0.012) K/mm3 Nucleated RBC % (0.0-0.2) % Sodium 138 (137-145) mmol/L Potassium 3.5 (3.4-5.0) mmol/L Chloride 106 (98-107) mmol/L Carbon Dioxide 23 (22-30) mmol/L Anion Gap 9 (4-12) mmol/L BUN 11 (7-17) mg/dL Creatinine 0.71 (0.7-1.0) mg/dL Estim Creat Clear Calc 114 ml/min Estimated GFR > 60 (59 - ) Glucose 89 (65-110) mg/dL Calcium 9.2 (8.4-10.2) mg/dL Total Bilirubin 0.5 (0.2-1.3) mg/dL AST 32 (14-36) U/L ALT 27 (6-35) U/L Alkaline Phosphatase 95 (38-126) U/L Total Protein 7.4 (6.3-8.2) g/dL Albumin 4.1 (3.5-5.1) g/dL Lipase 84 (23-300) U/L Urine Color (Yellow) Urine Appearance (Clear) Urine pH (5.0-9.0) Ur Specific [place] (1.001-1.035) Urine Protein (Negative) mg/dL Urine Glucose (UA) (Negative) mg/dL Urine Ketones (Negative) mg/dL Ur Blood (Man) (Negative) Urine Nitrate (Negative) Urine Bilirubin (Negative) Urine Urobilinogen (<2.0) mg/dL Leukocyte Esterase Rfl (Negative) OMAR/UL Urine RBC (0-2) /hpf Urine WBC (0-3) /hpf Ur Squamous Epith Cells (Few) /hpf Urine Bacteria /hpf Urine Casts POC Urine HCG, Qual (Negative) Imaging Data Attestation: I personally reviewed and interpreted this imaging study as follows: Radiologist's impression: ITS Impressions Abdomen/Pelvis CT 02/10/25 22:00 IMPRESSION: 1. No evidence of appendicitis, diverticulitis or intestinal obstruction. 2. Bilateral ovarian cysts larger on the right side. 3. Left fat-containing inguinal hernia. 4. Hepatomegaly with fat infiltration. Discharge Plan Discharge Clinical Impression: Gastroenteritis Patient Disposition: Home Condition: Stable Instructions: Antibiotic Form, Abdominal Pain (ED) Additional Instructions: Please return to the ER with any worsening symptoms. Follow-up with primary care provider as soon as possible. Take all medications as prescribed, including regularly scheduled medications. You may use Tylenol and ibuprofen for pain control. Patient Language: Kyrgyz Prescriptions: New dicyclomine 10 mg capsule 10 mg PO TID Qty: 21 0RF cyclobenzaprine 5 mg tablet 5 mg PO TID PRN (Reason: muscle spasm) Qty: 15 0RF No Action metoprolol tartrate 25 mg tablet 12.5 mg PO BID Qty: 60 2RF amlodipine 10 mg tablet See Rx Instructions .ROUTE .COMPLEX Qty: 90 1RF Dose Instruction: Take 1 tablet by mouth once daily Rx Instructions: Take 1 tablet by mouth once daily Follow-up/Referrals: Kailyn Myrick MD [Primary Care Provider] - Stand Alone Forms: Work/School Release IP Time of Disposition: 22:55
[2025-02-10 20:18] LABS: BEDSIDEPREGUCG Negative (Negative)
--- OUTSIDE RECORDS SUMMARY | 2025-02-10 20:26 | XMS_ITS | Clinical Summary ---
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
--- OUTSIDE RECORDS SUMMARY | 2025-02-10 20:26 | XMS_ITS | Clinical Summary ---
Author Organization [facility] Address [address] [place] [address] Care Team Providers Care Kiln Repairer Name Role Phone Unavailable Primary Care Provider Unavailabl e Source Comments [facility],non-owned Affiliates and Associated Physician Practices is amultiple site organization consisting of ambulatory clinics and hospital sitesin [place], [place] and [place]. This disclosure is being madepursuant to the Care Everywhere program and may not contain all information available regarding this patient. Last updated 18.[facility] Allergies Active Allergy Reactions Criticality Noted Date [...] on file Legal Sex Female 6:33 PM RELAY DISPATCHER Gender Identity Not on file Sexual Orientation Not on file Last Filed Vital Signs Vital Sign Reading Time Taken Comments Blood Pressure 142/88 09/16/2019 4:44 PM RELAY DISPATCHER Pulse 90 09/16/2019 4:44 PM RELAY DISPATCHER Temperature 36.9 C (98.5 F) 09/16/2019 4:44 PM RELAY DISPATCHER Respiratory Rate 16 09/16/2019 4:44 PM RELAY DISPATCHER Oxygen Saturation 98% 09/16/2019 4:44 PM RELAY DISPATCHER Inhaled Oxygen Concentration - - Weight 108.4 kg (239 lb) 09/16/2019 4:44 PM RELAY DISPATCHER Height 165.1 cm (5' 5) 09/16/2019 4:44 PM RELAY DISPATCHER Body Mass Index 39.77 09/16/2019 4:44 PM RELAY DISPATCHER Plan of Treatment Health Maintenance Due Date [...] patient's age to complete this topic Insurance [facility] [place] [address] AETNA [facility]
--- OUTSIDE RECORDS SUMMARY | 2025-02-10 20:26 | XMS_ITS | Clinical Summary ---
Author Organization [employer] [address] [place] [address] Phone Care Team Providers Care Personal Injury Litigation Paralegal Name Role Phone Unavailable Primary Care Provider Unavailabl e Social History Tobacco Use Types Packs/Day Years Used Date Smoking Tobacco: Never Assessed Comments Unknown Sex and Gender Information Value Date Recorded Sex Assigned at Not on file Legal Sex Female 12:54 PM IRON HANDLER Gender Identity Not on file Sexual Orientation [...] patient's age to complete this topic Insurance [facility] [id number] [employer] PPO
--- OUTSIDE RECORDS SUMMARY | 2025-02-10 20:26 | XMS_ITS | Referral Summary ---
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
[2025-02-10] MEDS: SODIUM CHLORIDE 0.9% IV 1,000 ML 999 ML IV CONT (20:27)
[2025-02-10 20:42] LABS: Alanine Aminotransferase 27 U/L (6-35); Albumin Level 4.1 g/dL (3.5-5.1); Alkaline Phosphatase 95 U/L (38-126); Anion Gap 9 mmol/L (4-12); Aspartate Amino Transferase 32 U/L (14-36); Bilirubin,Total 0.5 mg/dL (0.2-1.3); Blood Urea Nitrogen 11 mg/dL (7-17); Calcium 9.2 mg/dL (8.4-10.2); Carbon Dioxide 23 mmol/L (22-30); Chloride 106 mmol/L (98-107); Estimated CRCL calculation 114 ml/min; Estimated Glomerular Filt Rate > 60; Glucose 89 mg/dL (65-110); Lipase 84 U/L (23-300); Potassium 3.5 mmol/L (3.4-5.0); Sodium 138 mmol/L (137-145); Total Protein 7.4 g/dL (6.3-8.2)
[2025-02-10 20:43] LABS: Basophils Absolute Auto 0.1 K/mm3 (0.0-0.1); Basophils Percent Auto 0.7 % (0.2-1.2); Eosinophils Absolute Auto 0.1 K/mm3 (0-0.3); Hematocrit 44.4 % (37.0-47.0); Hemoglobin 14.6 g/dL (12.0-15.0); Immature Granulocyte Absolute 0.03 K/mm3 (0.00-0.031); Immature Granulocyte Percent A 0.3 % (0-0.5); Lymphocytes Absolute Auto 2.37 K/mm3 (0.9-3.2); Lymphocytes Percent Auto 23.5 % (18.3-44.2); Mean Corpuscular HGB Conc 32.9 g/dl (32-36); Mean Corpuscular Hemoglobin 30.7 pg (26-34); Mean Corpuscular Volume 93.3 fl (80-100); Mean Platelet Volume 10.4 fl (7.4-10.4); Monocytes Absolute Auto 0.8 K/mm3 (0.1-0.6); Monocytes Percent Auto 7.7 % (2.6-8.5); Neutrophils Absolute Auto 6.7 K/mm3 (1.3-6.7); Neutrophils Percent Auto 66.8 % (45.5-73.1); Platelet Count Result 271 k/mm3 (150-375); Red Blood Count 4.76 M/mm3 (4.2-5.4); Red Cell Distribution Width 12.8 % (11.5-14.5); White Blood Count 10.1 K/mm3 (4.5-10.0)
[2025-02-10 21:07] LABS: Add Urine Microscopic? NO; Appearance Urine Clear (Clear); Bacteria Urine None Seen /hpf; Bilirubin Urine Negative (Negative); Blood Urine Non-Hemolyzed Trace (Negative); Color Urine Yellow (Yellow); Glucose Urine UA Negative (Negative); Ketones Urine Negative (Negative); Leukocyte Esterase Ur Negative LEU/UL (Negative); Nitrate Urine Negative (Negative); Non Pathogenic Casts 0-2; Protein Urine Negative (Negative); Specific Grav Ur 1.013 (1.001-1.035); Squamous Epithelial Cell Urine None Seen /hpf (Few); Urobilinogen Urine 0.2 mg/dL (<2.0); WBC Urine 0-5 /hpf (0-3)
[2025-02-10] MEDS: KETOROLAC 15 MG/ML VIAL (*BKC) IV PUSH (22:52)
[2025-02-10 23:25] VITALS: BP 136/88; PULSE 86; RESP 14; O2SAT 99
[2025-02-10 23:26] VITALS: BP 136/88; PULSE 86; RESP 14; O2SAT 99
== END 2025-02-10 23:28 | disposition home or self-care (01) ==
PROVIDERS: Emergency Provider Registered Nurse; PCP Family Medicine
DX: K52.9 Noninfective gastroenteritis and colitis, unspecified (principal); E66.01 Morbid (severe) obesity due to excess calories; Z68.42 Body mass index [BMI] 45.0-49.9, adult; E28.2 Polycystic ovarian syndrome; Z90.49 Acquired absence of other specified parts of digestive tract; Z90.711 Acquired absence of uterus with remaining cervical stump; K40.90 Unilateral inguinal hernia, without obstruction or gangrene, not specified as recurrent; K76.0 Fatty (change of) liver, not elsewhere classified; R16.0 Hepatomegaly, not elsewhere classified; Z79.899 Other long term (current) drug therapy
CPT/HCPCS: 36415; 74177; 80053; 81003; 81025; 83690; 85025; 96361; 96374; 99284; J1885; J7030; Q9967

== ENCOUNTER 2025-02-13 09:12 | Outpatient (CLI) | payer OTHER, SELFPAY ==
--- NOTE | ~2025-02-13 | CT_ITS ---
Non-contrast CT scan of the Abdomen and Pelvis Clinical indication: Abdominal pain Technique: 2.5 mm axial scans were obtained through the abdomen and pelvis without intravenous or or al contrast. Dose reduction technique was used on this scan by utilizing automated exposure control a nd iterative reconstruction technique. The dose-length product (DLP) was 1462.54 mGy-cm. COMPARISON: 02/10/2025 Findings: Images through the lung bases reveal no abnormalities. There is no evidence of renal or ureteral calculi. The kidneys and the ureters are nondilated. The liver, spleen, pancreas, and adrenals appear normal. Cholecystectomy clips are present. There is no aortic aneurysm. There is no evidence of bowel obstruction. Images through the pelvis were performed. 6.2 cm right ovarian cyst present. 2.8 cm left ovarian cyst present. Urinary bladder unremarkable. No ascites. Impression: 6.2 cm right ovarian cyst. 2.8 cm left ovarian cyst. Reviewed, dictated and finalized at [facility]. Impression: 6.2 cm right ovarian cyst. 2.8 cm left ovarian cyst.
--- OUTSIDE RECORDS SUMMARY | 2025-02-13 09:19 | XMS_ITS | Clinical Summary ---
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
--- OUTSIDE RECORDS SUMMARY | 2025-02-13 09:19 | XMS_ITS | Clinical Summary ---
Author Organization [email or web address] [address] [facility] [address] [place] [address] Phone Care Team Providers Care Tight Rope Walker Name Role Phone Unavailable Primary Care Provider Unavailabl e Social History Tobacco Use Types Packs/Day Years Used Date Smoking Tobacco: Never Assessed Comments Unknown Sex and Gender Information Value Date Recorded Sex Assigned at Not on file Legal Sex Female 12:54 PM COMMUNICATIONS DEPARTMENT HEAD Gender Identity Not on file Sexual Orientation [...] patient's age to complete this topic Insurance [facility] [id number] [employer] PPO
--- OUTSIDE RECORDS SUMMARY | 2025-02-13 09:19 | XMS_ITS | Clinical Summary ---
Author Organization [facility] [employer] Address [address] [place] [address] Care Team Providers Care Diving Judge Name Role Phone Unavailable Primary Care Provider Unavailabl e Source Comments [facility] [employer],non-owned Affiliates and Associated Physician Practices is amultiple site organization consisting of ambulatory clinics and hospital sitesin [place] and [place]. This disclosure is being madepursuant to the Care Everywhere program and may not contain all information available regarding this patient. Last updated 18.[facility] [employer] Allergies Active Allergy Reactions Criticality Noted Date [...] on file Legal Sex Female 6:33 PM RUBBER GOODS INSPECTOR Gender Identity Not on file Sexual Orientation Not on file Last Filed Vital Signs Vital Sign Reading Time Taken Comments Blood Pressure 142/88 09/16/2019 4:44 PM RUBBER GOODS INSPECTOR Pulse 90 09/16/2019 4:44 PM RUBBER GOODS INSPECTOR Temperature 36.9 C (98.5 F) 09/16/2019 4:44 PM RUBBER GOODS INSPECTOR Respiratory Rate 16 09/16/2019 4:44 PM RUBBER GOODS INSPECTOR Oxygen Saturation 98% 09/16/2019 4:44 PM RUBBER GOODS INSPECTOR Inhaled Oxygen Concentration - - Weight 108.4 kg (239 lb) 09/16/2019 4:44 PM RUBBER GOODS INSPECTOR Height 165.1 cm (5' 5) 09/16/2019 4:44 PM RUBBER GOODS INSPECTOR Body Mass Index 39.77 09/16/2019 4:44 PM RUBBER GOODS INSPECTOR Plan of Treatment Health Maintenance Due Date [...] patient's age to complete this topic Insurance [facility] AETNA [facility]
--- OUTSIDE RECORDS SUMMARY | 2025-02-13 09:19 | XMS_ITS | Referral Summary ---
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
== END 2025-02-13 09:13 | disposition home or self-care (01) ==
PROVIDERS: PCP Family Medicine
DX: R10.9 Unspecified abdominal pain (principal); N83.201 Unspecified ovarian cyst, right side; N83.202 Unspecified ovarian cyst, left side
CPT/HCPCS: 74176

== ENCOUNTER 2025-02-13 11:11 | Outpatient (CLI) | payer OTHER, SELFPAY ==
--- NOTE | ~2025-02-13 | US_ITS ---
EXAMINATION: US transvaginal INDICATION: Right lower quadrant pain. Right ovarian cyst seen on CT. Comparison:CT dated 02/13/2025 and ultrasound dated 10/23/2018 TECHNIQUE: Multiple transabdominal and endovaginal sonographic images of the pelvis performed. FINDINGS: The uterus is surgically absent. The right ovary measures 7 x 6.9 x 4.9 cm and contains a s imple 6.4 cm cyst. Left ovary measures 4.1 x 4.4 x 3.2 cm and contains a complicated cyst measuring 2 .9 cm. There is free fluid in the pelvis. There are no abnormal masses seen on either side. IMPRESSION: 1. Bilateral ovarian cysts, largest in the right ovary measuring 6.4 cm. Reviewed, dictated and finalized at location B.
== END 2025-02-13 11:12 | disposition home or self-care (01) ==
LOC: MICIMG 11:12
PROVIDERS: PCP Family Medicine; Visit Provider Student in an Organized Health Care Education/Training Program
DX: N83.201 Unspecified ovarian cyst, right side (principal); R10.31 Right lower quadrant pain; N83.202 Unspecified ovarian cyst, left side
CPT/HCPCS: 76830

== ENCOUNTER 2025-04-17 13:17 | Outpatient (CLI) | payer OTHER, SELFPAY ==
--- NOTE | ~2025-04-17 | US_ITS ---
EXAMINATION: US transvaginal INDICATION: Ovarian cysts. Comparison:No prior studies for comparison. TECHNIQUE: Multiple transabdominal and endovaginal sonographic images of the pelvis performed. FINDINGS: The uterus is surgically absent. The right ovary measures 3.5 x 2 x 3 cm and contains follicles. Vascular flow is demonstrated in the right ovary. Left ovary measures 2.3 x 2.1 x 1.8 cm. Vascularity cannot be documented due to overlyin g bowel gas. There is no free fluid in the pelvis. There are no abnormal masses seen on either side. IMPRESSION: 1. Unremarkable pelvic ultrasound status post hysterectomy. Reviewed, dictated and finalized at location A.
--- OUTSIDE RECORDS SUMMARY | 2025-04-17 13:22 | XMS_ITS | Clinical Summary ---
Author Organization [facility] Address [address] [place] [address] Care Team Providers Care Grain Cleaner And Transfer Operator Name Role Phone Unavailable Primary Care Provider Unavailabl e Source Comments [facility],non-owned Affiliates and Associated Physician Practices is amultiple site organization consisting of ambulatory clinics and hospital sitesin [place], [place], [place] and [place]. This disclosure is being madepursuant to the Care Everywhere program and may not contain all information available regarding this patient. Last updated 18.[facility] Allergies Active Allergy Reactions Criticality Noted Date [...] on file Legal Sex Female 6:33 PM COMMERCIAL ILLUSTRATOR Gender Identity Not on file Sexual Orientation Not on file Last Filed Vital Signs Vital Sign Reading Time Taken Comments Blood Pressure 142/88 09/16/2019 4:44 PM COMMERCIAL ILLUSTRATOR Pulse 90 09/16/2019 4:44 PM COMMERCIAL ILLUSTRATOR Temperature 36.9 C (98.5 F) 09/16/2019 4:44 PM COMMERCIAL ILLUSTRATOR Respiratory Rate 16 09/16/2019 4:44 PM COMMERCIAL ILLUSTRATOR Oxygen Saturation 98% 09/16/2019 4:44 PM COMMERCIAL ILLUSTRATOR Inhaled Oxygen Concentration - - Weight 108.4 kg (239 lb) 09/16/2019 4:44 PM COMMERCIAL ILLUSTRATOR Height 165.1 cm (5' 5) 09/16/2019 4:44 PM COMMERCIAL ILLUSTRATOR Body Mass Index 39.77 09/16/2019 4:44 PM COMMERCIAL ILLUSTRATOR Plan of Treatment Health Maintenance Due Date Last Done Comments LIPID TESTING 1982 MAMMOGRAM 1982 HIV SCREENING 1997 HEPATITIS C SCREENING 06/01/2000 DTAP/TDAP/TD VACCINES (1 - Tdap) 2001 HEPATITIS B VACCINE (1 of 3 - 19+ 3-dose series) 2001 HPV VACCINE (1 - 3-dose SCDM series) 2009 COVID-19 VACCINE (1 - 2023-2 5 season) 2024 DEPRESSION SCREENING 09/03/2024 INFLUENZA VACCINE (#1) 2025 ZOSTER VACCINE (1 of 2) 2032 [...] patient's age to complete this topic Insurance [facility] [address] [place] [address] [facility]
--- OUTSIDE RECORDS SUMMARY | 2025-04-17 13:22 | XMS_ITS | Clinical Summary ---
Author Organization [facility] [address] - [address] [facility] [address] [place] [address] Phone Care Team Providers Care Powder Carrier Name Role Phone Unavailable Primary Care Provider Unavailabl e Social History Tobacco Use Types Packs/Day Years Used Date Smoking Tobacco: Never Assessed Comments Unknown Sex and Gender Information Value Date Recorded Sex Assigned at Not on file Legal Sex Female 12:54 PM CONDUCTOR SLEEPING CAR Gender Identity Not on file Sexual Orientation Not on file Plan of Treatment Health Maintenance Due Date Last Done Comments HPV VACCINES (1 - 3-dose series) 1997 DTAP/TDAP/TD VACCINES (1 - Tdap) 2001 HEPATITIS B VACCINES (1 of 3 - 19+ 3-dose series) 12/2000 HPV/Cotest (21-29) 2003 CERVICAL CANCER SCREENING 2012 HPV/Cotest (30-65) 2012 PAP SMEAR 2012 BREAST CANCER SCREENING 2022 INFLUENZA VACCINE (#1) 2025 Insurance [facility] OPTIONS PPO [id number] PPO
--- OUTSIDE RECORDS SUMMARY | 2025-04-17 13:22 | XMS_ITS | Clinical Summary ---
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
== END 2025-04-17 13:18 | disposition home or self-care (01) ==
LOC: CHSIMG 13:20
PROVIDERS: PCP Family Medicine; Visit Provider Obstetrics & Gynecology
DX: N83.202 Unspecified ovarian cyst, left side (principal); N83.201 Unspecified ovarian cyst, right side; Z90.710 Acquired absence of both cervix and uterus
CPT/HCPCS: 76830